=== PATIENT | male | born 1955 | race Caucasian/White ===

== ENCOUNTER 2021-01-31 03:57 | Emergency (ER) | payer MEDICARE ==
[~2021-01-31] VITALS: Ht 175.3 cm; Wt 89.4 kg
--- NOTE | 2021-01-31 04:50 | NUR ---
PT C/O OF LOWER ABDOMINAL PAIN SINCE 5 HOURS AGO. PT ABDOMEN IS DISTENDED AND PT STATES HE HAS NOT BEEN ABLE TO URINATE PT REPORTS DRIBBLING, PAINFUL URINATION, AMD INCREASED FREQUENCY. ATTACHED TO MONITORS, [id number]. BLADDER SCANNER SHOWED 570ML FLUID. BED IN LOW, RAILS ENGAGED, CALL LIGHT ON LAP. ER MD GAVE VERBAL ORDER TO START SIMMONS CATHETER.
--- NOTE | 2021-01-31 05:06 | NUR ---
PT TOLERATED F/C WELL. URINE IS CLEAR AND YELLOW. PT STATES FEELINGS OF RELIEF. ANTONY
[2021-01-31 05:18] LABS: MICROSCOPIC AUTO
[2021-01-31 06:14] VITALS: BP 132/85
--- NOTE | 2021-01-31 06:17 | NUR ---
Patient/Caregiver given discharge instructions and they have confirmed that they understand the instructions. Patient ambulatory with steady gait. NAD, all questions answered appropriately, denies additional needs at this time. No personal belongings left in room after discharge.
== END 2021-01-31 06:18 | disposition home or self-care (01) ==
LOC: ED 05:29
DX: N40.1 Benign prostatic hyperplasia with lower urinary tract symptoms (principal); R33.8 Other retention of urine
CPT/HCPCS: 51702; 81001; 99284

== ENCOUNTER 2021-01-31 10:15 | Emergency (ER) | payer MEDICARE ==
[~2021-01-31] VITALS: Ht 175.3 cm; Wt 88.7 kg
--- NOTE | 2021-01-31 10:57 | NUR ---
SIMMONS CATHETER REMOVED WITHOUT ISSUE. SECURMENT DEVICE REMOVED WITHOUT ISSUE.
[2021-01-31 12:04] VITALS: BP 167/100
[2021-01-31 12:13] LABS: MICROSCOPIC AUTO
--- NOTE | 2021-01-31 12:30 | NUR ---
PT REC'VD DISCHARGE INSTRUCTION AND EDUCATION. PT HAD NO FURTHER QUESTIONS. PT AMBULATED TO DC AREA, STEADY GAIT.
== END 2021-01-31 12:39 | disposition home or self-care (01) ==
LOC: ED 10:32
DX: T83.091A Other mechanical complication of indwelling urethral catheter, initial encounter (principal); R33.9 Retention of urine, unspecified
CPT/HCPCS: 81001; 87086; 99283